=== PATIENT | female | born 1930 | race Hispanic/Latino ===

== ENCOUNTER → 2017-11-01 | Outpatient (CLI) | payer OTHER | LOC: RAH 13:13 | PROVIDERS: ATTEND Nurse Practitioner Family | DX: I70.203 Unspecified atherosclerosis of native arteries of extremities, bilateral legs (principal) | CPT/HCPCS: 93925; 93970 ==

== ENCOUNTER 2019-05-21 12:33 | Observation (INO) | payer OTHER ==
[~2019-05-21] VITALS: Ht 154.9 cm; Wt 72.4 kg
[2019-05-21 13:06] LABS: HEMATOCRIT 36.3 % (36-48); WHITE BLOOD COUNT (AUTO) 7.9 K/uL (4.8-10.8)
[2019-05-21 13:07] LABS: BASOPHILS % (AUTO) 0.6 % (0.0-5.0); EOSINOPHILS % (AUTO) 3.2 % (0.0-8.0); LYMPHOCYTES % (AUTO) 33.6 % (21.0-51.0); MEAN CORPUSCULAR HEMOGLOBIN 30.8 pg (27.0-33.0); MEAN CORPUSCULAR VOLUME 90.8 fL (79-99); MONOCYTES % (AUTO) 7.1 % (3.0-13.0); NEUTROPHILS % (AUTO) 55.5 % (40.0-77.0); PLATELET COUNT (AUTO) 306 K/uL (130-400); RED CELL DISTRIBUTION WIDTH 14.1 % (11.0-15.5)
[2019-05-21] MEDS ORDERED: FUROSEMIDE 10 MG/ML 4ML VIAL ONE ×2 (13:13→21:06)
[2019-05-21 13:17] LABS: CREATININE 1.5 mg/dL (0.5-1.5); POTASSIUM 3.6 mmol/L (3.5-5.1)
[2019-05-21 13:22] LABS: ALBUMIN 3.2 g/dL (3.5-5.0); BILIRUBIN,TOTAL 0.3 mg/dL (0.2-1.0); TOTAL PROTEIN, SERUM 8.3 g/dL (6.0-8.3)
[2019-05-21 13:29] LABS: B-TYPE NATRIURETIC PEPTIDE 132 pg/mL (0-100)
[2019-05-21 13:32] LABS: ABG BASE EXCESS 2.9 mmol/L (-2.0-3.0); ABG HCO3 27.6 mmol/L (21.0-28.0); ABG OXYGEN SATURATION 91.9 % (95.0-99.0); ABG PCO2 43 mmHg (32-45)
[2019-05-21] MEDS ORDERED: ACETAMINOPHEN 325 MG TAB PO PRN ×2 (18:00)
[2019-05-21] MEDS: NITROGLYCERIN 1GM/1 INCH PACKET TD SCH (18:00)
[2019-05-21] MEDS ORDERED: LACTULOSE 20 GM/30 ML UDCUP PO PRN (18:00)
[2019-05-21] MEDS ORDERED: MORPHINE SULFATE 2 MG/ML 1ML SYG IV PRN (18:00)
[2019-05-21] MEDS ORDERED: HYDRALAZINE HCL 20 MG/ML VIAL IV PRN (18:00)
[2019-05-21] MEDS ORDERED: ONDANSETRON HCL 4 MG/2 ML VIAL IV PRN (18:00)
[2019-05-21] MEDS: FUROSEMIDE 10 MG/ML 4ML VIAL IVP SCH (21:00)
[2019-05-21] MEDS: METOPROLOL TARTRATE 25 MG TAB PO SCH (21:00)
[2019-05-21] MEDS ORDERED: POTASSIUM CHLORIDE 20 MEQ ERTAB PO ONE ×2 (22:30→23:11)
--- NOTE | 2019-05-21 23:00 | NUR ---
PATIENT ARRIVED ON UNIT PATIENT C/O SOB WITH EXERTION. AUDIBLE WHEEZES. CRACKLES TO BASES. NON- PRODUCTIVE COUGH. ON 2L NC,93%. DENIES CHEST PAIN. VERMA CATHETER IN PLACE DRAINING CLEAR YELLOW URINE. VERMA CARE PROVIDED. MEDICATIONS INPUT IN SYSTEM. NEED TO BE RESUMED.
[2019-05-21 23:43] VITALS: BP 135/65
[2019-05-22] MEDS ORDERED: FLUO-125 PO (00:37)
[2019-05-22] MEDS ORDERED: FURO20TA4 PO (00:37)
[2019-05-22] MEDS ORDERED: FAMO20TA8 PO (00:37)
[2019-05-22] MEDS ORDERED: LEVO75 PO (00:37)
[2019-05-22] MEDS ORDERED: POTA20TA82 PO (00:37)
[2019-05-22] MEDS ORDERED: AMLO10TA7 PO (00:37)
[2019-05-22] MEDS ORDERED: CARV6.25 PO (00:37)
[2019-05-22] MEDS ORDERED: ERGO500014 PO (00:37)
[2019-05-22] MEDS ORDERED: GABA-531 PO (00:37)
[2019-05-22] MEDS: NITROGLYCERIN 1GM/1 INCH PACKET TD SCH ×3 (02:00→17:13)
[2019-05-22 04:06] VITALS: BP 125/61
[2019-05-22 07:07] VITALS: BP 125/65
--- NOTE | 2019-05-22 08:00 | NUR ---
ASSESSMENT PT IS AAOX4 DENIES CP DENIES SOB DENIES NV NO COMPLAINTS. FAMILY IS AT BEDSIDE, CALL LIGHT WITHIN REACH. PATIENT STATES SHE IS FEELING BETTER NOW COMPARED TO LAST NIGHT.
[2019-05-22] MEDS: FUROSEMIDE 10 MG/ML 4ML VIAL IVP SCH ×2 (08:15→21:00)
[2019-05-22] MEDS: ASPIRIN 325 MG TABLET PO SCH (08:15)
[2019-05-22] MEDS: ENOXAPARIN SODIUM 30 MG/0.3 ML SQ SCH (08:16)
[2019-05-22] MEDS: FAMOTIDINE/PF 20 MG/2 ML VIAL IV SCH (08:16)
[2019-05-22] MEDS: METOPROLOL TARTRATE 25 MG TAB PO SCH ×2 (08:16→21:00)
[2019-05-22 10:38] VITALS: BP 136/56
--- NOTE | 2019-05-22 12:00 | NUR ---
STATUS PT IS RESTING IN BED. NO COMPLAINTS, FAMILY REMAINS AT BEDSIDE.
[2019-05-22 15:15] VITALS: BP 133/62
--- NOTE | 2019-05-22 16:36 | NUR ---
DC PLAN VISITED WITH PATIENT AND DAUGHTER. PATIENT LIVES WITH SON. SEMI- INDEPENDENT ABLE TO PERFORM SOME ADL'S. PATIENT HAS A PROVIDER NOT SURE ON THE HOURS. USES A WALKER. FEELS SAFE TO RETURN HOME. Addendum: 05/22/19 at 1638 by MOLLY POZO RN CM Amended: Links added.
--- NOTE | 2019-05-22 16:58 | NUR ---
2D ECHO AT BEDSIDE
[2019-05-22 20:01] VITALS: BP 136/50
[2019-05-22] MEDS: FLUOXETINE HCL 10 MG CAPSULE PO SCH (21:45)
[2019-05-23] VITALS: BP 136/57
[2019-05-23] MEDS: NITROGLYCERIN 1GM/1 INCH PACKET TD SCH ×3 (02:00→18:00)
[2019-05-23 03:43] VITALS: BP 132/54
[2019-05-23 07:43] VITALS: BP 131/79
[2019-05-23] MEDS ORDERED: FLUOXETINE HCL 10 MG CAPSULE PO SCH (09:00)
[2019-05-23] MEDS: ASPIRIN 325 MG TABLET PO SCH (09:39)
[2019-05-23] MEDS: FLUOXETINE HCL 10 MG CAPSULE PO SCH (09:39)
[2019-05-23] MEDS: METOPROLOL TARTRATE 25 MG TAB PO SCH (09:39)
[2019-05-23] MEDS: FAMOTIDINE/PF 20 MG/2 ML VIAL IV SCH (09:40)
[2019-05-23] MEDS: FUROSEMIDE 10 MG/ML 4ML VIAL IVP SCH (09:40)
[2019-05-23] MEDS: ENOXAPARIN SODIUM 30 MG/0.3 ML SQ SCH (09:44)
[2019-05-23 12:04] VITALS: BP 149/66
[2019-05-23 15:54] VITALS: BP 144/61
[2019-05-23] MEDS ORDERED: LISI2.5T2 PO (16:35)
[2019-05-23] MEDS ORDERED: FURO40TA7 PO (16:35)
[2019-05-23 16:47] LABS: BASOPHILS % (AUTO) 1.1 % (0.0-5.0); EOSINOPHILS % (AUTO) 2.4 % (0.0-8.0); HEMATOCRIT 45.3 % (36-48); LYMPHOCYTES % (AUTO) 30.6 % (21.0-51.0); MEAN CORPUSCULAR HEMOGLOBIN 30.4 pg (27.0-33.0); MEAN CORPUSCULAR HGB CONC 33.7 g/dL (32.0-36.0); MEAN CORPUSCULAR VOLUME 90.2 fL (79-99); MONOCYTES % (AUTO) 5.6 % (3.0-13.0); NEUTROPHILS % (AUTO) 60.3 % (40.0-77.0); PLATELET COUNT (AUTO) 373 K/uL (130-400); RED BLOOD CELL COUNT(AUTO) 5.02 MIL/uL (4.00-5.50); RED CELL DISTRIBUTION WIDTH 14.2 % (11.0-15.5); WHITE BLOOD COUNT (AUTO) 8.8 K/uL (4.8-10.8)
[2019-05-23 16:56] LABS: ALBUMIN 3.8 g/dL (3.5-5.0); CREATININE 1.7 mg/dL (0.5-1.5); MAGNESIUM 2.6 mg/dL (1.80-2.40); POTASSIUM 3.2 mmol/L (3.5-5.1)
[2019-05-23] MEDS ORDERED: FUROSEMIDE 40 MG TABLET PO SCH (17:00)
[2019-05-23 17:18] LABS: B-TYPE NATRIURETIC PEPTIDE 57 pg/mL (0-100)
[2019-05-23] MEDS ORDERED: POTASSIUM CHLORIDE 20 MEQ ERTAB PO SCH (18:00)
--- NOTE | 2019-05-23 19:30 | NUR ---
Received bedside report,pt. pending to be discharged post void.
--- NOTE | 2019-05-23 20:28 | NUR ---
Pt. voided to toilet at this time,discharge instructions provided to pt and daughters who are present at bedside and demonstrated understanding.IV site to left forearm removed,catheter tip intact and dressing applied no skin tear noted.Telepack removed.Daughter to take her to home .Pt. remains alert and coherent,denies pain,or any discomfort.Condition stable.
== END 2019-05-23 21:00 | disposition home or self-care (01) ==
LOC: EDH 12:33 → EDHIP 17:52 → INTOOBSV 17:52 → 2AH 23:01
PROVIDERS: ADMIT Internal Medicine; ATTEND Internal Medicine
DX: J96.01 Acute respiratory failure with hypoxia (principal); I11.0 Hypertensive heart disease with heart failure; I50.30 Unspecified diastolic (congestive) heart failure; R00.1 Bradycardia, unspecified; R94.31 Abnormal electrocardiogram [ECG] [EKG]; Z79.899 Other long term (current) drug therapy
CPT/HCPCS: 36415 ×2; 36600; 71045; 71046; 80048; 80053; 82040; 82550; 82803; 83735; 83880 ×2; 84484; 85025 ×2; 93005; 93306; 96372 ×2; 96374; 96375; 96376 ×2; 97039; 97116; 97161; 99284; A4600; G0378 ×8; G8978; G8979; G8980; G8981; G8982; G8983; J1650 ×2; J1940 ×5; J3490 ×2

== ENCOUNTER 2019-07-08 04:13 | Emergency (ER) | payer OTHER, MEDICARE ==
[~2019-07-08 04:13] MED LIST: AMLO10TA7 PO; CARV6.25 PO; ERGO500014 PO; FAMO20TA8 PO; FLUO-125 PO; FURO40TA7 PO; GABA-531 PO; LEVO75 PO; LISI2.5T2 PO; POTA20TA82 PO
[2019-07-08] MEDS ORDERED: LIDOCAINE HCL 1% 20 ML VIAL ONE (04:30)
[2019-07-08] MEDS ORDERED: TETANUS/DIPHTHERIA TOXOID [ADULT] 0.5 ML VIAL IM ONE (05:09)
== END 2019-07-08 06:02 | disposition home or self-care (01) ==
LOC: EDH 04:13
DX: S51.012A Laceration without foreign body of left elbow, initial encounter (principal); I11.0 Hypertensive heart disease with heart failure; I50.9 Heart failure, unspecified; F03.90 Unspecified dementia, unspecified severity, without behavioral disturbance, psychotic disturbance, mood disturbance, and anxiety; W22.03XA Walked into furniture, initial encounter; Y93.89 Activity, other specified; Y92.098 Other place in other non-institutional residence as the place of occurrence of the external cause; Y99.8 Other external cause status
CPT/HCPCS: 12002; 73080; 90471; 90714

== ENCOUNTER 2019-07-14 18:35 | Emergency (ER) | payer OTHER, MEDICARE | END 2019-07-14 19:06 | disposition home or self-care (01) | LOC: EDH 18:35 | DX: S51.012D Laceration without foreign body of left elbow, subsequent encounter (principal); I11.0 Hypertensive heart disease with heart failure; I50.9 Heart failure, unspecified; E07.9 Disorder of thyroid, unspecified; X58.XXXD Exposure to other specified factors, subsequent encounter | CPT/HCPCS: 99281 ==